=== PATIENT | female | born 1935 | race Caucasian/White ===

== ENCOUNTER 2018-02-07 12:47 | Emergency (ER) | payer MEDICARE, MEDICAID ==
[~2018-02-07] VITALS: Ht 160 cm; Wt 71.0 kg
[~2018-02-07 12:47] MED LIST: ATEN50TA8 PO; CLOP75TA15 PO; FERR325T28 PO; OXCA300T39 PO; POTA8TAB46 PO; PRED20TA PO; RALO60TA PO; SIMV20TA5 PO; [UNRECOGNIZED DRUG - CODE] PO
[2018-02-07 13:05] VITALS: BP 131/49
[2018-02-07] MEDS ORDERED: ONDA8TAB9 PO (13:50)
[2018-02-07] MEDS ORDERED: LISI10TA4 PO (13:50)
[2018-02-07] MEDS ORDERED: CLOP75TA35 PO (13:50)
[2018-02-07] MEDS ORDERED: LEVE10002 PO (13:50)
== END 2018-02-07 14:01 | disposition home or self-care (01) ==
LOC: ER 12:48
DX: Z76.0 Encounter for issue of repeat prescription (principal); I25.10 Atherosclerotic heart disease of native coronary artery without angina pectoris; E78.00 Pure hypercholesterolemia, unspecified; I10 Essential (primary) hypertension; Z86.73 Personal history of transient ischemic attack (TIA), and cerebral infarction without residual deficits; Z98.61 Coronary angioplasty status; Z95.1 Presence of aortocoronary bypass graft; Z88.0 Allergy status to penicillin; Z88.5 Allergy status to narcotic agent; Z79.01 Long term (current) use of anticoagulants; Z79.899 Other long term (current) drug therapy
CPT/HCPCS: 99284

== ENCOUNTER 2018-02-18 22:54 | Emergency (ER) | payer MEDICARE, MEDICAID ==
[~2018-02-18] VITALS: Ht 160 cm; Wt 72.5 kg
[~2018-02-18 22:54] MED LIST changes: +CLOP75TA35 PO; +LEVE10002 PO; +LISI10TA4 PO; +ONDA8TAB9 PO
[2018-02-19 00:45] LABS: HEMATOCRIT 28.9 % (35.0-45.0); HEMOGLOBIN 9.7 g/dl (12.0-16.0); MEAN CORPUSCULAR HEMOGLOBIN 33.4 PG (27.0-31.0); MEAN CORPUSCULAR VOLUME 99.9 FL (78-98); WHITE BLOOD COUNT 5.4 X10'3 (4.5-11.0)
[2018-02-19 00:46] LABS: BASOPHILS % (AUTO) 0.5 % (0-1); EOSINOPHILS # (AUTO) 0.1 X10'3 (0-0.9); LYMPHOCYTES # (AUTO) 1.2 X10'3 (1.1-4.8); LYMPHOCYTES % (AUTO) 22.9 % (21-51); MEAN CORPUSCULAR HGB CONC 33.4 % (33.0-36.5); MEAN PLATELET VOLUME 9.1 FL (7.4-10.4); MONOCYTES # (AUTO) 0.4 X10'3 (0-0.9); MONOCYTES % (AUTO) 8.2 % (2-12); NEUTROPHILS # (AUTO) 3.7 X10'3 (1.8-7.7); NEUTROPHILS % (AUTO) 67.4 % (42-75); PLATELET COUNT 149 X10'3 (140-440); RED CELL DISTRIBUTION WIDTH 13.6 % (11.5-14.5)
[2018-02-19 00:54] LABS: ALANINE AMINOTRANSFERASE 15 U/L (12-78); ALBUMIN 3.4 G/DL (3.4-5.0); ALBUMIN/GLOBULIN RATIO 1.2 (1.1-1.5); ALKALINE PHOSPHATASE 48 IU/L (46-116); ANION GAP 9 (8-16); ASPARTATE AMINO TRANSFERASE 14 U/L (10-37); BILIRUBIN,TOTAL 0.3 MG/DL (0.1-1.0); BLOOD UREA NITROGEN 36 MG/DL (7-18); BUN/CREATININE RATIO 32.7 (6.6-38.0); CALCIUM 9.1 MG/DL (8.5-10.1); CHLORIDE 109 MMOL/L (99-107); GLUCOSE 104 MG/DL (70-104); POTASSIUM 3.8 MMOL/L (3.5-5.1); SODIUM 144 MMOL/L (135-145); TOTAL CARBON DIOXIDE 26.3 MMOL/L (24-32); TOTAL PROTEIN 6.3 G/DL (6.4-8.2); eGFR 48 ML/MIN
[2018-02-19] MEDS ORDERED: acetaminophen 325mg tablet PO ONE (01:20)
[2018-02-19] MEDS ORDERED: LIDOcaine 5% patch TP ONE (01:20)
[2018-02-19 01:40] LABS: INR 0.9 INR; PARTIAL THROMBOPLASTIN TIME 23 SECONDS (22-32); PROTHROMBIN TIME 9.7 SECONDS (9.0-12.0)
[2018-02-19] MEDS ORDERED: ACET-2615 PO (02:35)
[2018-02-19] MEDS ORDERED: LIDO700A32 TOP (02:35)
[2018-02-19 02:51] VITALS: BP 127/78
== END 2018-02-19 02:56 | disposition home or self-care (01) ==
LOC: ER 22:54
DX: M54.6 Pain in thoracic spine (principal); M54.5 Low back pain; I25.10 Atherosclerotic heart disease of native coronary artery without angina pectoris; E78.00 Pure hypercholesterolemia, unspecified; I10 Essential (primary) hypertension; Z86.73 Personal history of transient ischemic attack (TIA), and cerebral infarction without residual deficits; Z95.5 Presence of coronary angioplasty implant and graft; Z95.1 Presence of aortocoronary bypass graft; Z88.0 Allergy status to penicillin; Z88.5 Allergy status to narcotic agent; Z79.899 Other long term (current) drug therapy
CPT/HCPCS: 36415; 71045; 71250; 80053; 84484; 85025; 85610; 85730; 93005; 99285